=== PATIENT | female | born 1990 | race Caucasian/White ===

== ENCOUNTER 2019-12-26 16:17 | Emergency (ER) | payer OTHER, SELFPAY ==
--- NOTE | ~2019-12-26 | XR_ITS ---
EXAMINATION: XR hand LT min 3V EXAM DATE: 12/26/2019 20:08 INDICATION: Initial encounter following injury, with pain of the left hand. Animal bite. TECHNIQUE: Left hand frontal, lateral and oblique projections obtained and reviewed. There is no reese or study for comparison. FINDINGS: Left metacarpal bones are unremarkable. There are no acute fractures or dislocations ident ified. There is no subcutaneous gas. The soft tissue is unremarkable. There are no radiopaque for eign bodies. IMPRESSION: No acute osseous findings. Reviewed, dictated and finalized at location A. IMPRESSION: No acute osseous findings.
[2019-12-26 16:20] VITALS: BP 141/89; PULSE 94; RESP 16; TEMP 37.1; O2SAT 100
[2019-12-26] MEDS: AMOXICILLIN/CLAVULANATE K 875-125 MG TAB 1 TABLET PO (20:10)
[2019-12-26 20:13] VITALS: BP 128/80; PULSE 102; RESP 16; TEMP 37; O2SAT 99
[2019-12-26 20:40] VITALS: TEMP 37
--- NOTE | 2019-12-26 20:58 | ED.ANIMALBIT ---
HPI - Animal Bite General Chief Complaint: Animal Bite <Sanaz Horn PA-C - Last Filed: 12/26/19 21:09> Stated Complaint: DOG BITE L HAND <Sanaz Horn PA-C - Last Filed: 12/26/19 21:09> Time Seen by Provider: 12/26/19 19:48 <Sanaz Horn PA-C - Last Filed: 12/26/19 21:09> Source: patient <Sanaz Horn PA-C - Last Filed: 12/26/19 21:09> Mode of arrival: ambulatory <Sanaz Horn PA-C - Last Filed: 12/26/19 21:09> Limitations: no limitations <Sanaz Horn PA-C - Last Filed: 12/26/19 21:09> History of Present Illness HPI narrative: This is a 29 year old LHD female that presents to the ER for dog bite to left hand. Reports she was at work and holding a dog for x-ray. Reports she was bitten in the left hand. Reports puncture wounds to the area. Reports pain mainly around the 5th MCP joint. She is up to date on tetanus. Denies decreased ROM or numbness. <Sanaz Horn PA-C - Last Filed: 12/26/19 21:09> Related Data Allergies/Adverse Reactions: Allergies Allergy/AdvReac Type Severity Reaction Status Date / Time No Known Allergies Allergy Verified 12/26/19 20:16 <Sanaz Horn PA-C - Last Filed: 12/26/19 21:09> Review of Systems Review of Systems: Narrative: CONSTITUTIONAL: Denies fever SKIN: Reports laceration MUSCULOSKELETAL: Reports joint pain, and myalgia. NEUROLOGIC: Denies numbness <Sanaz Horn PA-C - Last Filed: 12/26/19 21:09> All systems reviewed & are unremarkable except as noted in HPI and below <Sanaz Horn PA-C - Last Filed: 12/26/19 21:09> [facility] Social History Social History: Social History (Updated 12/26/19 @ 21:02 by Sanaz Horn PA-C) Smoking status: Never smoker Substance use: never <Sanaz Horn PA-C - Last Filed: 12/26/19 21:09> Exam Narrative: Exam Narrative: GENERAL: Well-appearing, well-nourished, and in no acute distress. HEAD: Normocephalic, atraumatic. EYES: EOMI. EXTREMITIES: Normal range of motion. No edema or obvious deformity. Several small puncture wounds over the left fifth MCP joint on the dorsal and palmar surfaces, bleeding controlled SKIN: Warm, dry, no rash. NEURO: No focal deficits. Alert and oriented x3. PSYCH: Normal mood and affect <Sanaz Horn PA-C - Last Filed: 12/26/19 21:09> Course Vital Signs Vital signs: Vital Signs Temperature 37.1 C 12/26/19 16:20 Pulse Rate 94 12/26/19 16:20 Respiratory Rate 16 12/26/19 16:20 Blood Pressure 141/89 H 12/26/19 16:20 Pulse Oximetry 100 12/26/19 16:20 Temperature 36.4 C L 12/26/19 21:29 Pulse Rate 94 12/26/19 21:29 Respiratory Rate 18 12/26/19 21:29 Blood Pressure 123/81 12/26/19 21:29 Pulse Oximetry 98 12/26/19 21:29 <Sanaz Horn PA-C - Last Filed: 12/26/19 21:09> Vital Signs Temperature 37.1 C 12/26/19 16:20 Pulse Rate 94 12/26/19 16:20 Respiratory Rate 16 12/26/19 16:20 Blood Pressure 141/89 H 12/26/19 16:20 Pulse Oximetry 100 12/26/19 16:20 Temperature 36.4 C L 12/26/19 21:29 Pulse Rate 94 12/26/19 21:29 Respiratory Rate 18 12/26/19 21:29 Blood Pressure 123/81 12/26/19 21:29 Pulse Oximetry 98 12/26/19 21:29 <Silvia Connell MD - Last Filed: 12/27/19 00:20> MDM - Animal Bite MDM Narrative Medical decision making narrative: Patient presents emergency department for dog bite to left hand. Patient has several small puncture wounds to the area. Her wounds were thoroughly irrigated and covered with a bandage. Patient is up-to-date on tetanus. Left hand x-rays without acute findings. Patient will be started on oral antibiotic. She was given her first dose in ED. Spoke with Dr. Gilbert about patient and workup who will follow up in clinic <Sanaz Horn PA-C - Last Filed: 12/26/19 21:09> Imaging Data Radiologist's impression: ITS Impressions Hand X-Ray 12/26/19 20:14 IMPRESSION: No acute osseous
[2019-12-26 21:29] VITALS: BP 123/81; PULSE 94; RESP 18; TEMP 36.4; O2SAT 98
== END 2019-12-26 21:32 | disposition home or self-care (01) ==
PROVIDERS: Emergency Provider Emergency Medicine
DX: S61.452A Open bite of left hand, initial encounter (principal); W54.0XXA Bitten by dog, initial encounter
CPT/HCPCS: 73130; 99283; A9270